=== PATIENT | male | born 1995 | race African-American/Black ===

== ENCOUNTER 2018-12-16 13:53 | Emergency (ER) | payer BC ==
[~2018-12-16] VITALS: Ht 170.2 cm; Wt 84.4 kg
[2018-12-16 13:59] VITALS: BP 122/72
--- NOTE | 2018-12-16 14:28 | NUR ---
PT AMB W/O ASST TO ER BED 12
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
[2018-12-16 16:15] VITALS: BP 118/76
--- NOTE | 2018-12-16 16:15 | NUR ---
Patient discharged VVS, AAOX4, Written and verbal after care instructions given and explained, verbalized understanding of instructions. Ambulatory with steady gait. All questions addressed prior to discharge. ID band removed. PT dvised to follow up with PMD. Rx of Motrin 800mg given. Patient educated on indication of medication including possible reaction and side effects. Opportunity to ask questions provided and answered.
== END 2018-12-16 16:15 | disposition home or self-care (01) ==
LOC: MED 13:53
DX: S46.912A Strain of unspecified muscle, fascia and tendon at shoulder and upper arm level, left arm, initial encounter (principal); H11.32 Conjunctival hemorrhage, left eye; V49.9XXA Car occupant (driver) (passenger) injured in unspecified traffic accident, initial encounter; Y93.89 Activity, other specified; Y92.488 Other paved roadways as the place of occurrence of the external cause; Y99.8 Other external cause status
CPT/HCPCS: 90715; 99283

== ENCOUNTER 2022-03-13 03:45 | Emergency (ER) | payer SELFPAY ==
[~2022-03-13] VITALS: Ht 170.2 cm; Wt 86.2 kg
[2022-03-13 03:50] VITALS: BP 130/59
--- NOTE | 2022-03-13 03:53 | NUR ---
TO BED AMBULATORY
[2022-03-13] MEDS ORDERED: ONDANSETRON 4 MG/2 ML VIAL IVP ONE (03:55)
[2022-03-13] MEDS ORDERED: NACL 0.9% 1,000 ML IV ONE (03:55)
[2022-03-13] MEDS ORDERED: ONDANSETRON 4 MG ODT ONE (03:59)
[2022-03-13] MEDS ORDERED: ONDANSETRON 4 MG ODT PO ONE (04:00)
--- NOTE | 2022-03-13 04:01 | NUR ---
pt refused iv and iv medication. ishan anaya made aware, changed zofran from ivp to po, pt refused as well. pt states "im just here to sleep and some water". ishan anaya made aware.
--- NOTE | 2022-03-13 04:02 | NUR ---
26 yo m bib self with c/c of wanting a blanket, water and sleep.
[2022-03-13] MEDS ORDERED: ONDA8TAB87 PO (04:38)
[2022-03-13 04:41] VITALS: BP 130/59
== END 2022-03-13 04:41 | disposition home or self-care (01) ==
LOC: MED 03:45
DX: F10.129 Alcohol abuse with intoxication, unspecified (principal); R11.2 Nausea with vomiting, unspecified; Y90.9 Presence of alcohol in blood, level not specified
CPT/HCPCS: 99283; Q0162